=== PATIENT | female | born 1985 | race Caucasian/White ===

== ENCOUNTER 2016-05-27 04:10 | Emergency (ER) | payer BC ==
[~2016-05-27] VITALS: Ht 167.6 cm; Wt 70.3 kg
[2016-05-27] MEDS ORDERED: VITALIQ XX (04:19)
[2016-05-27] MEDS ORDERED: FISH1000 PO (04:20)
[2016-05-27] MEDS ORDERED: CLAR1TAB2 AD (04:21)
[2016-05-27] MEDS ORDERED: CLAR10CA3 PO (04:21)
[2016-05-27] MEDS ORDERED: NS 1,000 ML IV ONE ×2 (04:45→08:45)
[2016-05-27 05:00] LABS: BASO % 0.2 % (0.0-1.0); EOS # 0.1 K/mm3 (0.0-0.50); EOS % 0.9 % (0.0-3.0); LARGE UNSTAINED CELL # 0.1 K/mm3 (0.0-0.4); LARGE UNSTAINED CELL % 0.6 % (0.0-4.0); LYMPH % 9.7 % (24.0-44.0); MEAN CORPUSCULAR HEMOGLOBIN 33.1 pg (27.0-33.0); MEAN CORPUSCULAR HGB CONC 35.2 g/dl (32.0-36.5); MONO # 0.2 K/mm3 (0.0-0.8); MONO % 1.8 % (0.0-5.0); NEUTROPHILS # 8.7 K/mm3 (1.8-7.7); NEUTROPHILS % 86.8 % (36.0-66.0); PLATELET COUNT, AUTOMATED 238 k/mm3 (150-450); RED CELL DISTRIBUTION WIDTH 12.2 % (11.5-14.5); WHITE BLOOD COUNT 10.1 K/mm3 (4.0-10.0)
[2016-05-27 05:30] LABS: ALBUMIN 4.3 GM/DL (3.2-5.2); ALKALINE PHOSPHATASE 66 U/L (45-117); ALT/SGPT 32 U/L (12-78); ANION GAP 9 MEQ/L (8-16); AST/SGOT 24 U/L (15-37); BILIRUBIN,DIRECT < 0.1 MG/DL (0.0-0.2); BILIRUBIN,TOTAL 0.3 MG/DL (0.2-1.0); BLOOD UREA NITROGEN 10 MG/DL (7-18); CALCIUM LEVEL 8.5 MG/DL (8.5-10.1); CARBON DIOXIDE LEVEL 24 MEQ/L (21-32); CHLORIDE LEVEL 106 MEQ/L (98-107); CREATININE FOR GFR 0.86 MG/DL (0.55-1.02); GLOMERULAR FILTRATION RATE > 60.0 (>60); GLUCOSE, FASTING 128 MG/DL (70-105); POTASSIUM SERUM 3.3 MEQ/L (3.5-5.1); SODIUM LEVEL 139 MEQ/L (136-145); TOTAL PROTEIN 8.2 GM/DL (6.4-8.2)
[2016-05-27 06:10] LABS: VENOUS BASE EXCESS -2.5 (-2.0-2.0); VENOUS O2 SATURATION 86.6 % (60.0-80.0); VENOUS PARTIAL PRESSURE CO2 37.5 mmHg (38.0-50.0); VENOUS PARTIAL PRESSURE O2 51.2 mmHg (30.0-50.0); VENOUS STANDARD HCO3 22.2 MEQ/L; VENOUS TOTAL CO2 23.2 MEQ/L (24.0-28.0)
[2016-05-27 06:46] LABS: METHADONE URINE NEGATIVE (NEGATIVE)
[2016-05-27 10:00] VITALS: BP 130/75
[2016-05-27 11:28] LABS: CONTROL LINE HCG INT CTR LINE PRESENT
--- NOTE | 2016-05-28 09:15 | ECGEPIP ---
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
== END 2016-05-27 12:19 | disposition home or self-care (01) ==
LOC: M ED 05:09
DX: T14.91 Suicide attempt (principal); T39.1X2A Poisoning by 4-Aminophenol derivatives, intentional self-harm, initial encounter; Y92.89 Other specified places as the place of occurrence of the external cause
CPT/HCPCS: 36415; 80048; 80076; 80306; 82550; 82803; 84443; 84703; 85025; 93005; 93041; 96360; 96361; 99285; G0480

== ENCOUNTER → 2016-07-11 | Outpatient (REF) | payer BC ==
[~2016-07-11] MED LIST: CLAR10CA3 PO; CLAR1TAB2 AD; FISH1000 PO; VITALIQ XX
== END ==
LOC: M SFHCWAGY 08:55
PROVIDERS: ATTEND Nurse Practitioner Women's Health
DX: Z12.4 Encounter for screening for malignant neoplasm of cervix (principal)

== ENCOUNTER → 2016-09-24 | Outpatient (CLI) | payer BC ==
--- NOTE | 2016-09-25 05:24 | REP ---
Clinical: Pelvic pain and irregular menstrual cycles . Technique: Transabdominal pelvic ultrasound followed by transvaginal examination for better evaluation of the endometrium and adnexa. Findings: Bladder is unremarkable and measures 9.6 x 8.8 x 6.6 cm . Normal anteverted uterus measures 7.1 x 2.3 x 4.2 cm . The endometrial complex measures 5.9 mm thickness. No discrete uterine or endometrial abnormalities are appreciated. Bilateral ovaries are normal in appearance. Right ovary measures 3.4 x 2.3 x 2.0 cm. Left ovary measures 3.0 x 1.8 x 2.3 cm. No pelvic fluid or adnexal mass lesion . Impression: 1. Normal pelvic ultrasound Signed by Arsalan Miller MD 09/25/2016 05:15 A
== END ==
LOC: M WHC 15:01
PROVIDERS: ATTEND Nurse Practitioner Women's Health
DX: R10.30 Lower abdominal pain, unspecified (principal); N92.6 Irregular menstruation, unspecified

== ENCOUNTER → 2016-10-24 | Outpatient (CLI) | payer BC ==
[2016-10-24 13:02] LABS: PROLACTIN 10.8 NG/ML
[2016-10-24 13:13] LABS: CONTROL LINE HCG INT CTR LINE PRESENT
[2016-10-24 13:36] LABS: GLUCOSE, FASTING 86 MG/DL (70-105); T UPTAKE 35 % (30-39); THYROXINE (T4) 8.8 UG/DL (4.5-12.0)
[2016-10-28 08:06] LABS: INSULIN FREE 11 uU/mL (.)
== END ==
LOC: M SMT 08:51
PROVIDERS: ATTEND Advanced Practice Midwife
DX: N92.6 Irregular menstruation, unspecified (principal)

== ENCOUNTER → 2016-10-29 | Outpatient (CLI) | payer BC ==
[2016-10-29 20:16] LABS: FOLLICLE STIMULATING HORMONE 9.1 mIU/mL
== END ==
LOC: M WUC 17:33
PROVIDERS: ATTEND Advanced Practice Midwife
DX: N92.6 Irregular menstruation, unspecified (principal)

== ENCOUNTER → 2016-11-16 | Outpatient (CLI) | payer BC ==
[2016-11-16 12:49] LABS: PROGESTERONE 0.8 NG/ML
[2016-11-16 12:54] LABS: ESTRADIOL 89.2 PG/ML
== END ==
LOC: M WUC 08:14
PROVIDERS: ATTEND Advanced Practice Midwife
DX: N92.6 Irregular menstruation, unspecified (principal)

== ENCOUNTER → 2016-12-06 | Outpatient (CLI) | payer BC ==
[~2016-12-06] MED LIST changes: +ISOVUE-370 76% 100ML VIAL (Q9967) As Ordered ONE
--- NOTE | 2016-12-06 15:42 | REP ---
Hysterosalpingogram, 05/09 procedure fluoroscopic views: The procedures performed by the mental hygienist mani Donahue over the. The endometrial canal is normal in appearance. The right and left fallopian tubes are normal in appearance. There is bilateral intraperitoneal spill. Impression: Normal hysterosalpingogram. Fluoroscopic exposure time is 28 seconds. Fluoroscopic images are performed with last image hold technology. These images require no additional radiation. Signed by Guilherme Hanson MD 12/06/2016 03:34 P
== END ==
LOC: M RADPRO 12:58
PROVIDERS: ATTEND Obstetrics & Gynecology
DX: N97.8 Female infertility of other origin (principal); N92.6 Irregular menstruation, unspecified
CPT/HCPCS: 58340; 74740; Q9967

== ENCOUNTER → 2017-04-01 | Outpatient (CLI) | payer BC ==
[2017-04-01 19:20] LABS: HCG, SERUM QUANTITATIVE 114 MIU/ML
== END ==
LOC: M WUC 11:25
DX: N91.2 Amenorrhea, unspecified (principal)
CPT/HCPCS: 84702

== ENCOUNTER → 2017-04-03 | Outpatient (CLI) | payer BC ==
[2017-04-03 17:46] LABS: HCG, SERUM QUANTITATIVE 243 MIU/ML
== END ==
LOC: M WUC 10:53
DX: N91.2 Amenorrhea, unspecified (principal)
CPT/HCPCS: 84702

== ENCOUNTER → 2017-05-03 | Outpatient (REF) | payer BC | LOC: M LAB REF 13:20 | DX: R30.0 Dysuria (principal) | CPT/HCPCS: 87086 ==

== ENCOUNTER → 2017-05-17 | Outpatient (CLI) | payer BC ==
[2017-05-17 18:13] LABS: BASO % 0.2 % (0.0-1.0); EOS # 0.1 10^3/uL (0.0-0.50); EOS % 0.8 % (0.0-3.0); HEMATOCRIT 37.9 % (36.0-47.0); HEMOGLOBIN 13.6 g/dl (12.0-16.0); IMMATURE GRANULOCYTE % 0.4 % (0-3.0); LYMPH # 1.7 10^3/uL (1.5-6.5); LYMPH % 17.3 % (24.0-44.0); MEAN CORPUSCULAR HEMOGLOBIN 34.4 pg (27.0-33.0); MEAN CORPUSCULAR HGB CONC 35.9 g/dl (32.0-36.5); MEAN CORPUSCULAR VOLUME 95.9 fl (80.0-96.0); MONO # 0.4 10^3/uL (0.0-0.8); MONO % 3.7 % (0.0-5.0); NEUTROPHILS # 7.8 10^3/uL (1.8-7.7); NEUTROPHILS % 77.6 % (36.0-66.0); PLATELET COUNT, AUTOMATED 231 10^3/uL (150-450); RED BLOOD COUNT 3.95 10^6/uL (4.00-5.40); RED CELL DISTRIBUTION WIDTH 12.8 % (11.5-14.5); WHITE BLOOD COUNT 10.1 10^3/uL (4.0-10.0)
[2017-05-17 21:46] LABS: CHLAMYDIA DNA AMPLIFICATION NEGATIVE (NEGATIVE); GC DNA AMPLIFICATION NEGATIVE (NEGATIVE)
[2017-05-20 10:30] LABS: RUBELLA IgG QUALITATIVE IMMUNE (IMMUNE)
[2017-05-20 10:34] LABS: HBsAg Prenatal NEGATIVE (NEGATIVE)
[2017-05-20 10:59] LABS: HIV 1&2 SCREEN CENTAUR NEGATIVE (NEGATIVE)
[2017-05-20 10:59] LABS: HEPATITIS C VIRUS ABY INDEX < 0.0 INDEX (<0.8)
== END ==
LOC: M SMT 14:12
DX: Z34.81 Encounter for supervision of other normal pregnancy, first trimester (principal); Z3A.11 11 weeks gestation of pregnancy
CPT/HCPCS: 86762

== ENCOUNTER → 2017-06-26 | Outpatient (CLI) | payer BC | LOC: M SMT 12:54 | DX: Z34.80 Encounter for supervision of other normal pregnancy, unspecified trimester (principal) | CPT/HCPCS: 36415 ==

== ENCOUNTER → 2017-07-10 | Outpatient (CLI) | payer BC | LOC: M SMT 14:32 | DX: Z34.82 Encounter for supervision of other normal pregnancy, second trimester (principal); Z3A.18 18 weeks gestation of pregnancy | CPT/HCPCS: 76811 ==

== ENCOUNTER → 2017-08-28 | Outpatient (CLI) | payer BC | LOC: M RAD 09:27 | DX: Z34.82 Encounter for supervision of other normal pregnancy, second trimester (principal) | CPT/HCPCS: 76816 ==

== ENCOUNTER → 2017-09-02 | Outpatient (CLI) | payer BC ==
[2017-09-02 13:28] LABS: HEMATOCRIT 37.8 % (36.0-47.0); HEMOGLOBIN 12.9 g/dl (12.0-15.5); MEAN CORPUSCULAR HEMOGLOBIN 34.8 pg (27.0-33.0); MEAN CORPUSCULAR HGB CONC 34.1 g/dl (32.0-36.5); MEAN CORPUSCULAR VOLUME 101.9 fl (80.0-96.0); PLATELET COUNT, AUTOMATED 218 10^3/uL (150-450); RED BLOOD COUNT 3.71 10^6/uL (4.00-5.40); RED CELL DISTRIBUTION WIDTH 13.5 % (11.5-14.5); WHITE BLOOD COUNT 11.9 10^3/uL (4.0-10.0)
[2017-09-02 13:55] LABS: GLUCOSE CHALLENGE TEST 1 HOUR 132 MG/DL (LESS THAN 140)
[2017-09-03 09:19] LABS: TYPE AND SCREEN 1 1
== END ==
LOC: M SMT 08:22
DX: Z34.82 Encounter for supervision of other normal pregnancy, second trimester (principal); Z36.89 Encounter for other specified antenatal screening
CPT/HCPCS: 82950

== ENCOUNTER → 2017-09-13 | Outpatient (CLI) | payer BC ==
[2017-09-13 08:45] LABS: GLUCOSE, FASTING 96 MG/DL (LESS THAN 95)
[2017-09-13 09:31] LABS: 1 HR GLUCOSE 151 MG/DL (LESS THAN 180)
[2017-09-13 10:31] LABS: 2 HR GLUCOSE 119 MG/DL (LESS THAN 155)
[2017-09-13 11:33] LABS: 3 HR GLUCOSE 74 MG/DL (LESS THAN 140)
== END ==
LOC: M LAB 07:22
DX: Z34.83 Encounter for supervision of other normal pregnancy, third trimester (principal); Z3A.00 Weeks of gestation of pregnancy not specified
CPT/HCPCS: 82951

== ENCOUNTER 2017-11-20 09:25 | Inpatient (IN) | payer BC ==
[2017-11-20 10:09] LABS: HEMATOCRIT 36.7 % (36.0-47.0); HEMOGLOBIN 12.3 g/dl (12.0-15.5); MEAN CORPUSCULAR HEMOGLOBIN 32.6 pg (27.0-33.0); MEAN CORPUSCULAR HGB CONC 33.5 g/dl (32.0-36.5); MEAN CORPUSCULAR VOLUME 97.3 fl (80.0-96.0); PLATELET COUNT, AUTOMATED 208 10^3/uL (150-450); RED BLOOD COUNT 3.77 10^6/uL (4.00-5.40); RED CELL DISTRIBUTION WIDTH 13.5 % (11.5-14.5)
[2017-11-20 10:34] LABS: ALT/SGPT 16 U/L (12-78); AST/SGOT 17 U/L (7-37); BILIRUBIN,TOTAL 0.2 MG/DL (0.2-1.0); CREATININE FOR GFR 0.53 MG/DL (0.55-1.30); GLOMERULAR FILTRATION RATE > 60.0 (>60); LDH LACTATE DEHYDROGENASE 226 U/L (84-246); URIC ACID 5.6 MG/DL (2.6-6.0)
[2017-11-20 12:38] LABS: CREATININE,RANDOM URINE 25.5 MG/DL
[2017-11-20 12:38] LABS: TOTAL PROTEIN,RANDOM URINE 29.1 MG/DL (0.0-12.0)
[2017-11-20] MEDS: miSOPROStol 50 MCG 1/2 TAB (S0191) PO ×3 (12:41→20:44)
[2017-11-21] MEDS: LABETALOL HCL 100 MG/20 ML VIAL IV (00:21)
[2017-11-21] MEDS: miSOPROStol 50 MCG 1/2 TAB (S0191) PO ×2 (04:43)
[2017-11-21] MEDS ORDERED: OXYTOCIN 30 UNITS IN 0.9% NaCl 500ML IV BAG (J2590) As Ordered (09:33)
[2017-11-21] MEDS: LR 1,000 ML IV ×3 (10:15→20:10)
[2017-11-21] MEDS: OXYTOCIN DRIP 30 UNITS in APPROPRIATE DILUENT 1 EA IV (10:15)
[2017-11-21] MEDS ORDERED: FENTANYL 2MCG/ML ROPIVACAINE 0.2% IN 0.9% NACL 200ML IVBAG As Ordered (18:10)
[2017-11-21 18:15] LABS: HEMATOCRIT 37.3 % (36.0-47.0); HEMOGLOBIN 12.3 g/dl (12.0-15.5); MEAN CORPUSCULAR HEMOGLOBIN 32.5 pg (27.0-33.0); MEAN CORPUSCULAR VOLUME 98.4 fl (80.0-96.0); PLATELET COUNT, AUTOMATED 205 10^3/uL (150-450); RED BLOOD COUNT 3.79 10^6/uL (4.00-5.40); RED CELL DISTRIBUTION WIDTH 13.7 % (11.5-14.5); WHITE BLOOD COUNT 13.7 10^3/uL (4.0-10.0)
[2017-11-21] MEDS ORDERED: NALOXONE INJ 0.4 MG/1 ML VIAL (J2310) IV (20:00)
[2017-11-21] MEDS ORDERED: EPIDURAL COMMENT XX (20:00)
[2017-11-21] MEDS ORDERED: ONDANSETRON 4MG/2ML VIAL (J2405) IV (20:00)
[2017-11-21] MEDS ORDERED: diphenhydrAMINE INJ 50MG/ML VIAL (J1200) IV (20:00)
[2017-11-21] MEDS ORDERED: EPIDURAL/PCA KEYS XX (20:00)
[2017-11-21] MEDS ORDERED: FENTANYL/ROPIVACAINE/NACL BAG 200 ML EPIDURAL (20:00)
[2017-11-21] MEDS ORDERED: REFRIGERATOR IV KEYS XX (20:00)
[2017-11-21] MEDS ORDERED: LACTATED RINGER'S 1000 ML IV (20:00)
[2017-11-21] MEDS: ePHEDrine SULFATE 25 MG/5 ML(5MG/ML) SYRINGE IV (20:08)
[2017-11-22] MEDS: ePHEDrine SULFATE 25 MG/5 ML(5MG/ML) SYRINGE IV (01:10)
[2017-11-22] MEDS: LR 1,000 ML IV ×4 (01:11→20:08)
[2017-11-22] MEDS: BICITRA 30ML SOLN UDC PO (06:13)
[2017-11-22] MEDS ORDERED: OXYTOCIN INJ 10 UNITS/ML VIAL (J2590) As Ordered ×2 (06:39)
[2017-11-22] MEDS ORDERED: ONDANSETRON 4MG/2ML VIAL (J2405) As Ordered (06:39)
[2017-11-22] MEDS ORDERED: LIDOCAINE 2% W/EPIN INJ 20ML **PRES FREE As Ordered (06:39)
[2017-11-22] MEDS ORDERED: KETOROLAC 60 MG/2 ML VIAL (J1885) As Ordered (06:40)
[2017-11-22] MEDS ORDERED: SODIUM BICARBONATE 8.4% INJ 50 ML SYRINGE As Ordered (06:41)
[2017-11-22] MEDS ORDERED: PHENYLephrine HCL 500 MCG/5 ML (100MCG/ML) SYRINGE (J2370) As Ordered (06:42)
[2017-11-22] MEDS ORDERED: dexameTHASONE 4 MG/ML 1ML VIAL (J1100) As Ordered (06:47)
[2017-11-22] MEDS ORDERED: MORPHINE PRES-FREE INJ 10 MG/10 ML VIAL (J2274) As Ordered (06:50)
[2017-11-22] MEDS ORDERED: ONDANSETRON 4MG/2ML VIAL (J2405) IV ×3 (07:00→08:15)
[2017-11-22] MEDS ORDERED: NALOXONE INJ 0.4 MG/1 ML VIAL (J2310) IV ×2 (07:00)
[2017-11-22] MEDS ORDERED: NALBUPHINE HCL 10 MG/ML AMP (J2300) IV ×2 (07:00→08:15)
[2017-11-22] MEDS ORDERED: METOCLOPRAMIDE INJ 10MG/2ML VIAL (J2765) IV (07:00)
[2017-11-22] MEDS: OXYTOCIN DRIP 30 UNITS in APPROPRIATE DILUENT 1 EA IV (07:21)
[2017-11-22 07:24] LABS: CORD GAS ABE V -1.3; CORD GAS HCO3 V 26.5 MEQ/L; CORD GAS O2 SAT V 23.9 %; CORD GAS PCO2 V 56.7 mmHg; CORD GAS PH V 7.287 UNITS; CORD GAS SBC V 21.5 MEQ/L; CORD GAS TCO2 V 28.2 MEQ/L
[2017-11-22 07:25] LABS: CORD GAS ABE A -1.7; CORD GAS HCO3 A 27.5 MEQ/L; CORD GAS O2 SAT A 37.2 %; CORD GAS PCO2 A 66.7 mmHg; CORD GAS PH A 7.233 UNITS; CORD GAS PO2 A 20.4 mmHg; CORD GAS SBC A 21.6 MEQ/L; CORD GAS TCO2 A 29.5 MEQ/L
[2017-11-22] MEDS ORDERED: MOM 30ML SUSPENSION UDC PO (07:30)
[2017-11-22] MEDS ORDERED: MEASLES,MUMPS,RUBELLA VACCINE INJ (MMR-II) (90707) SC (07:30)
[2017-11-22] MEDS ORDERED: fentaNYL 100 MCG/2 ML INJECTION (J3010) IV (08:15)
[2017-11-22] MEDS: PRENATAL VITAMINS CHEWABLE TABLET PO (08:59)
[2017-11-22] MEDS: KETOROLAC 30 MG/ML VIAL (J1885) IV ×2 (13:05→18:49)
[2017-11-22] MEDS ORDERED: INFLUENZA QUADRIVALENT PF VACCINE 0.5ML SYRINGE (90686) IM (15:00)
[2017-11-22] MEDS: DOCUSATE SODIUM 100 MG CAP PO (20:08)
[2017-11-22] MEDS: PERCOCET 5MG/325MG TAB PO (20:08)
[2017-11-23] MEDS: KETOROLAC 30 MG/ML VIAL (J1885) IV (01:55)
[2017-11-23] MEDS: LR 1,000 ML IV ×2 (02:15→10:15)
[2017-11-23] MEDS: PERCOCET 5MG/325MG TAB PO ×4 (05:18→19:55)
[2017-11-23 07:30] LABS: HEMATOCRIT 26.3 % (36.0-47.0); MEAN CORPUSCULAR HEMOGLOBIN 32.7 pg (27.0-33.0); MEAN CORPUSCULAR HGB CONC 33.1 g/dl (32.0-36.5); MEAN CORPUSCULAR VOLUME 98.9 fl (80.0-96.0); PLATELET COUNT, AUTOMATED 162 10^3/uL (150-450); RED BLOOD COUNT 2.66 10^6/uL (4.00-5.40); RED CELL DISTRIBUTION WIDTH 13.7 % (11.5-14.5); WHITE BLOOD COUNT 11.5 10^3/uL (4.0-10.0)
[2017-11-23 07:40] LABS: HEMOGLOBIN 8.7 g/dl (12.0-15.5)
[2017-11-23] MEDS: IBUPROFEN 800 MG TAB PO ×2 (08:16→16:41)
[2017-11-23] MEDS: PRENATAL VITAMINS CHEWABLE TABLET PO (08:16)
[2017-11-23 11:05] LABS: FETAL SCREEN PROF. 1 1
[2017-11-23] MEDS: RHOGAM 300 MCG (1500 IU) INJ (J2790) IM (11:20)
[2017-11-23] MEDS: DOCUSATE SODIUM 100 MG CAP PO (19:53)
[2017-11-24] MEDS: IBUPROFEN 800 MG TAB PO ×3 (00:26→16:39)
[2017-11-24] MEDS: PERCOCET 5MG/325MG TAB PO ×5 (00:27→20:04)
[2017-11-24] MEDS: PRENATAL VITAMINS CHEWABLE TABLET PO (08:59)
[2017-11-24] MEDS ORDERED: INFLUENZA QUADRIVALENT PF VACCINE 0.5ML SYRINGE (90686) IM (09:00)
[2017-11-25] MEDS: IBUPROFEN 800 MG TAB PO ×2 (01:30→08:46)
[2017-11-25] MEDS: PERCOCET 5MG/325MG TAB PO ×2 (05:53→10:55)
[2017-11-25] MEDS: PRENATAL VITAMINS CHEWABLE TABLET PO (08:46)
[2017-11-25] MEDS: LABETALOL 200 MG TAB PO (08:49)
[2017-11-25] MEDS: INFLUENZA QUADRIVALENT PF VACCINE 0.5ML SYRINGE (90686) IM (10:46)
== END 2017-11-25 14:50 | disposition home or self-care (01) | DRG 540 ==
LOC: M LDO 09:25 → M OBS 11-22 08:57 → M LDI 11:24
PROC: 10D00Z1 Extraction of Products of Conception, Low, Open Approach (ICD-10-PCS; principal; 2017-11-22 06:28)
DX: O14.94 Unspecified pre-eclampsia, complicating childbirth (principal); Z37.0 Single live birth; Z3A.37 37 weeks gestation of pregnancy

== ENCOUNTER → 2018-01-29 | Outpatient (REF) | payer BC | LOC: M LAB REF 13:01 | DX: R30.0 Dysuria (principal); R31.9 Hematuria, unspecified | CPT/HCPCS: 87186 ==

== ENCOUNTER → 2018-05-29 | Outpatient (REF) | payer BC ==
[~2018-05-29] MED LIST changes: +COLA100C5 PO; +IBUP-1114 PO; +IBUP1TAB7 PO; -ISOVUE-370 76% 100ML VIAL (Q9967) As Ordered ONE; +LABE20TAB PO; +PERCOCET PO; +PRENTAB9 PO
[2018-05-31 16:40] LABS: HPV HYBRID CAPTURE II Negative (Negative)
== END ==
LOC: M LAB REF 18:35
PROVIDERS: ATTEND Obstetrics & Gynecology
DX: Z12.4 Encounter for screening for malignant neoplasm of cervix (principal)
CPT/HCPCS: 87624; G0123

== ENCOUNTER → 2018-12-01 | Outpatient (CLI) | payer BC ==
[2018-12-01 19:19] LABS: BASO % 0.3 % (0.0-1.0); EOS # 0.1 10^3/uL (0.0-0.5); EOS % 0.7 % (0.0-3.0); HEMATOCRIT 40.8 % (36.0-47.0); HEMOGLOBIN 14.3 g/dl (12.0-15.5); LYMPH # 2.5 10^3/uL (1.5-5.0); LYMPH % 25.1 % (24.0-44.0); MEAN CORPUSCULAR HEMOGLOBIN 34.4 pg (27.0-33.0); MEAN CORPUSCULAR VOLUME 98.1 fl (80.0-96.0); MONO # 0.5 10^3/uL (0.0-0.8); MONO % 4.7 % (0.0-5.0); NEUTROPHILS # 6.8 10^3/uL (1.5-8.5); NEUTROPHILS % 68.9 % (36.0-66.0); PLATELET COUNT, AUTOMATED 237 10^3/uL (150-450); RED BLOOD COUNT 4.16 10^6/uL (4.00-5.40); WHITE BLOOD COUNT 9.9 10^3/uL (4.0-10.0)
[2018-12-01 19:29] LABS: ALT/SGPT 187 U/L (12-78); BILIRUBIN,TOTAL 0.2 MG/DL (0.2-1.0); GLOMERULAR FILTRATION RATE > 60.0 (>60); LDH LACTATE DEHYDROGENASE 186 U/L (84-246); URIC ACID 3.1 MG/DL (2.6-6.0)
[2018-12-01 19:45] LABS: RUBELLA IgG QUALITATIVE IMMUNE (IMMUNE)
[2018-12-01 20:13] LABS: CREATININE,RANDOM URINE 30.5 MG/DL; TOTAL PROTEIN,RANDOM URINE 5.1 MG/DL (0.0-12.0)
[2018-12-01 20:14] LABS: HIV 1&2 SCREEN CENTAUR NEGATIVE (NEGATIVE)
[2018-12-01 21:30] LABS: CHLAMYDIA DNA AMPLIFICATION NEGATIVE (NEGATIVE); GC DNA AMPLIFICATION NEGATIVE (NEGATIVE)
[2018-12-03 10:07] LABS: HEPATITIS C VIRUS ABY INDEX 0.1 INDEX (<0.8)
== END ==
LOC: M LABDRWAD 15:15
PROVIDERS: ATTEND Advanced Practice Midwife
DX: Z34.81 Encounter for supervision of other normal pregnancy, first trimester (principal); Z3A.08 8 weeks gestation of pregnancy

== ENCOUNTER → 2018-12-29 | Outpatient (REF) | payer BC ==
[2018-12-29 18:43] LABS: ALT/SGPT 28 U/L (12-78); BILIRUBIN,TOTAL 0.3 MG/DL (0.2-1.0); CREATININE FOR GFR 0.52 MG/DL (0.55-1.30); GLOMERULAR FILTRATION RATE > 60.0 (>60); LDH LACTATE DEHYDROGENASE 172 U/L (84-246); URIC ACID 3.2 MG/DL (2.6-6.0)
[2018-12-29 19:30] LABS: CREATININE,RANDOM URINE 58.1 MG/DL; TOTAL PROTEIN,RANDOM URINE 8.4 MG/DL (0.0-12.0)
== END ==
LOC: M LABDRWAD 18:23
PROVIDERS: ATTEND Advanced Practice Midwife
DX: O34.211 Maternal care for low transverse scar from previous cesarean delivery (principal); Z3A.00 Weeks of gestation of pregnancy not specified

== ENCOUNTER → 2019-01-20 | Outpatient (CLI) | payer BC | LOC: M SMT 15:17 | PROVIDERS: ATTEND Advanced Practice Midwife | DX: Z34.82 Encounter for supervision of other normal pregnancy, second trimester (principal); Z3A.00 Weeks of gestation of pregnancy not specified ==

== ENCOUNTER → 2019-03-03 | Outpatient (CLI) | payer BC ==
[2019-03-03 17:58] LABS: HEMATOCRIT 35.5 % (36.0-47.0); HEMOGLOBIN 12.2 g/dl (12.0-15.5); MEAN CORPUSCULAR HEMOGLOBIN 35.6 pg (27.0-33.0); MEAN CORPUSCULAR HGB CONC 34.4 g/dl (32.0-36.5); MEAN CORPUSCULAR VOLUME 103.5 fl (80.0-96.0); PLATELET COUNT, AUTOMATED 215 10^3/uL (150-450); RED BLOOD COUNT 3.43 10^6/uL (4.00-5.40); WHITE BLOOD COUNT 10.9 10^3/uL (4.0-10.0)
[2019-03-03 18:20] LABS: TOTAL PROTEIN,RANDOM URINE 15.3 MG/DL (0.0-12.0)
[2019-03-03 18:22] LABS: ALT/SGPT 16 U/L (12-78); BILIRUBIN,TOTAL 0.2 MG/DL (0.2-1.0); CREATININE FOR GFR 0.55 MG/DL (0.55-1.30); GLOMERULAR FILTRATION RATE > 60.0 (>60); LDH LACTATE DEHYDROGENASE 148 U/L (84-246); URIC ACID 3.9 MG/DL (2.6-6.0)
== END ==
LOC: M WUC 14:19
PROVIDERS: ATTEND Advanced Practice Midwife
DX: O16.2 Unspecified maternal hypertension, second trimester (principal); Z3A.00 Weeks of gestation of pregnancy not specified

== ENCOUNTER → 2019-03-21 | Outpatient (CLI) | payer BC ==
[2019-03-21 17:41] LABS: HEMATOCRIT 37.2 % (36.0-47.0); HEMOGLOBIN 12.7 g/dl (12.0-15.5); MEAN CORPUSCULAR HEMOGLOBIN 35.2 pg (27.0-33.0); MEAN CORPUSCULAR HGB CONC 34.1 g/dl (32.0-36.5); PLATELET COUNT, AUTOMATED 217 10^3/uL (150-450); RED BLOOD COUNT 3.61 10^6/uL (4.00-5.40); WHITE BLOOD COUNT 9.5 10^3/uL (4.0-10.0)
== END ==
LOC: M LABDRWAD 08:42
PROVIDERS: ATTEND Specialist
DX: Z34.92 Encounter for supervision of normal pregnancy, unspecified, second trimester (principal); Z3A.00 Weeks of gestation of pregnancy not specified

== ENCOUNTER → 2019-04-15 | Outpatient (CLI) | payer BC | LOC: M PLALAB 11:11 | PROVIDERS: ATTEND Advanced Practice Midwife | DX: O99.810 Abnormal glucose complicating pregnancy (principal); Z3A.00 Weeks of gestation of pregnancy not specified ==

== ENCOUNTER → 2019-04-22 | Outpatient (CLI) | payer BC | LOC: M LAB 08:22 | PROVIDERS: ATTEND Advanced Practice Midwife | DX: O99.810 Abnormal glucose complicating pregnancy (principal); Z3A.00 Weeks of gestation of pregnancy not specified ==

== ENCOUNTER → 2019-05-27 | Outpatient (CLI) | payer BC ==
--- NOTE | 2019-05-27 09:22 | REP ---
Clinical: Growth evaluation. Comparison: 02/20/2019 . Findings: Examination demonstrates a single live intrauterine in transverse (head to maternal right) presentation. motion is identified by technologist. Placenta is noted fundal and grade I I without evidence for placenta previa or abruption. Amniotic fluid volume is normal. Cervix measures 4.6 cm in length and appears closed. No evidence for nuchal cord. Gestational age by LMP 34 weeks 5 days with BRINA 07/03/2019 . Gestational age by current measurements 35 weeks 4 days with BRINA 06/27/2019 . FHR equals 135 beats per minute. Amniotic fluid index: 23.3 cm (8.0 - 24.9) Estimated weight by current biometrical measurements 2707 grams ( 63rd percentile). Impression: Single live advanced gestation in transverse lie demonstrating appropriate interval growth.
== END ==
LOC: M WHC 08:20
PROVIDERS: ATTEND Advanced Practice Midwife
DX: O10.913 Unspecified pre-existing hypertension complicating pregnancy, third trimester (principal)

== ENCOUNTER → 2019-06-05 | Outpatient (REF) | payer BC ==
[~2019-06-05] MED LIST changes: +ASPI81TA85 PO; +LABE10TAB PO
== END ==
LOC: M SFHCWAGY 13:05
PROVIDERS: ATTEND Obstetrics & Gynecology
DX: Z36.85 Encounter for antenatal screening for Streptococcus B (principal); O10.913 Unspecified pre-existing hypertension complicating pregnancy, third trimester; Z3A.00 Weeks of gestation of pregnancy not specified

== ENCOUNTER 2019-06-23 06:24 | Inpatient (IN) | payer BC ==
[~2019-06-23] VITALS: Ht 167.6 cm; Wt 91.8 kg
[2019-06-23] VITALS (8 sets, daily range): BP systolic 92–124; BP diastolic 55–72
[2019-06-23] MEDS ORDERED: LR 1,000 ML IV ONE (07:30)
[2019-06-23] MEDS ORDERED: ceFAZolin SOD 2 GM in IV 1 EA IV ONE (07:30)
[2019-06-23] MEDS ORDERED: BICITRA 30ML SOLN UDC PO ONE (07:30)
[2019-06-23] MEDS ORDERED: LR 1,000 ML IV SCH ×2 (07:30→10:28)
[2019-06-23 07:48] LABS: HEMATOCRIT 36.9 % (36.0-47.0); HEMOGLOBIN 12.7 g/dl (12.0-15.5); MEAN CORPUSCULAR HGB CONC 34.4 g/dl (32.0-36.5); MEAN CORPUSCULAR VOLUME 98.7 fl (80.0-96.0); PLATELET COUNT, AUTOMATED 191 10^3/uL (150-450); RED BLOOD COUNT 3.74 10^6/uL (4.00-5.40); WHITE BLOOD COUNT 8.9 10^3/uL (4.0-10.0)
[2019-06-23] MEDS ORDERED: OXYTOCIN INJ 10 UNITS/ML VIAL (J2590) As Ordered ONE ×2 (08:24→08:25)
[2019-06-23] MEDS ORDERED: MORPHINE PRES-FREE INJ 10 MG/10 ML VIAL (J2274) As Ordered ONE (08:24)
[2019-06-23] MEDS ORDERED: NALBUPHINE HCL 10 MG/ML AMP (J2300) IV PRN (09:15)
[2019-06-23] MEDS ORDERED: ONDANSETRON 4MG/2ML VIAL IV PRN ×2 (09:15→10:30)
[2019-06-23] MEDS ORDERED: NALOXONE INJ 0.4MG/1ML VIAL (J2310 PER 1MG) IV PRN ×2 (09:15)
[2019-06-23] MEDS ORDERED: diphenhydrAMINE 50MG/ML VIAL (J1200) IV PRN (09:15)
[2019-06-23] MEDS ORDERED: METOCLOPRAMIDE INJ 10MG/2ML VIAL (J2765 PER 1) IV PRN (09:15)
[2019-06-23] MEDS ORDERED: BUPIVACAINE/DEXTROSE 0.75% 2 ML AMP As Ordered ONE (09:39)
[2019-06-23] MEDS ORDERED: dexameTHASONE 4 MG/ML 1ML VIAL (J1100 PER 1MG) As Ordered ONE (09:39)
[2019-06-23] MEDS ORDERED: KETOROLAC 60 MG/2 ML VIAL As Ordered ONE (09:39)
[2019-06-23] MEDS ORDERED: ONDANSETRON 4MG/2ML VIAL As Ordered ONE (09:39)
[2019-06-23] MEDS ORDERED: PHENYLephrine HCL 500 MCG/5 ML (100MCG/ML) SYRINGE (J2370) As Ordered ONE (10:14)
[2019-06-23] MEDS ORDERED: ePHEDrine SULFATE 25 MG/5 ML(5MG/ML) SYRINGE As Ordered ONE (10:14)
[2019-06-23] MEDS ORDERED: OXYTOCIN DRIP 30 UNITS in IV 1 EA IV SCH (10:28)
[2019-06-23] MEDS ORDERED: RHOGAM 300 MCG (1500 IU) INJ (J2790) IM SCH (10:30)
[2019-06-23] MEDS ORDERED: MOM 30ML SUSPENSION UDC PO PRN (10:30)
[2019-06-23] MEDS ORDERED: MEASLES,MUMPS,RUBELLA VACCINE INJ (MMR-II) (90707) SC SCH (10:30)
[2019-06-23] MEDS ORDERED: OXYTOCIN 30 UNITS IN 0.9% NaCl 500ML IV BAG (J2590) As Ordered ONE (10:38)
[2019-06-23] MEDS: KETOROLAC 30 MG/ML 1ML VIAL IV SCH ×2 (15:39→22:11)
--- NOTE | 2019-06-23 16:13 | ROOPDOC ---
[facility] Report Of Operation Report of Operation DATE OF PROCEDURE: 06/23/19 SURGEON: Jocelynn Mckeon M.D. HOME HEALTH CARE CASE MANAGER: Franklin Dhaliwal DO ANESTHESIA: Spinal ESTIMATED BLOOD LOSS: 500 ml URINE OUTPUT: 200 mL INTRAVENOUS FLUIDS: 1700 mL PREOPERATIVE ANTIBIOTICS:. 2 g of Ancef PERIOPERATIVE DIAGNOSIS: 1. Chronic hypertension 2. History of prior section 3. Intrauterine at 38+ weeks 4. Satisfied parity with undesired fertility POSTOPERATIVE DIAGNOSIS: 1. Chronic hypertension 2. History of prior section 3. Intrauterine at 38+ weeks 4. Satisfied parity with undesired fertility OPERATIVE FINDINGS: Liveborn male infant, Apgars 9 and 9. Weight was 4070 g or 9 lbs. 0 oz. SPECIMENS:. Bilateral segments of fallopian tubes DESCRIPTION OF PROCEDURE: After informed consent was obtained and written consent was reviewed. The patient was brought to the operating room where spinal anesthesia was placed. She was then placed in the supine position with a left lateral tilt. Batista catheter was placed and to gravity. Patient was then prepped and draped in the normal sterile fashion. A timeout operating room was performed identifying the patient, procedure be performed as well as drug allergies. Anesthesia was tested and deemed to be adequate. Pfannenstiel skin incision was made and this was carried down to the underlying rectus fascia. The fascia was then scored and this incision was extended bilaterally. The fascia was then dissected off the underlying rectus muscle superiorly and inferiorly. The rectus muscles were then in the midline. The peritoneum is then entered. Vesicouterine peritoneum was then tented and excised and a bladder flap was created. Mobius retractor was then placed. Next, a curvilinear incision was then made in the lower uterine segment. Amniotomy was performed, productive, clear fluid. The head was brought to the level of the incision atraumatically and delivered along the shoulders and corpus. The cord was clamped 2. The was brought over to the warmer with a good cry. Placenta was drained and delivered grossly intact. The uterus was cleared of all clots and debris and the uterine incision was then closed in 2 layers using 0 Vicryl, first in a running locking fashion followed by second layer for imbrication. The abdomen suctioned. Surgical sites reinspected and noted be hemostatic. Attention was then turned to a bilateral [place] tubal ligation. A window was created in the right mesosalpinx. This area was doubly ligated with 3-0 chromic and was excised with good hemostasis noted. In a similar fashion, the left fallopian tube was placed on traction. A window was created in the mesosalpinx. This area was doubly ligated with 3-0 chromic and was excised, and hemostasis was noted. The retractor was then removed. The anterior peritoneum was then reapproximated with 3-0 Vicryl. The rectus muscles were reapproximated 3-0 Vicryl. The fascia was then closed using 0Vicryl in a running nonlocking fashion. The subcutaneous tissues was then irrigated and suctioned. Subcutaneous tissue was reapproximated using 3-0 Vicryl. Several subdermal stitch is placed using 3-0 Vicryl and the skin was closed with 4-0 Monocryl and subarticular fashion. This incision was then cleaned and dried and was dressed. The patient was then taken to recovery in stable condition. All counts were correct. My certified ophthalmic surgical assistant Dr. Dhaliwal played in an essential roll during the operation. They assisted with tissue identification retraction, delivery of the , as well as wound closure. JOCELYNN MCKEON MD. Jun 23, 2019 16:13
[2019-06-23] MEDS: LABETALOL 100 MG TAB PO SCH (20:19)
[2019-06-23] MEDS: DOCUSATE SODIUM 100 MG CAP PO SCH (20:20)
[2019-06-24] MEDS: KETOROLAC 30 MG/ML 1ML VIAL IV SCH (04:01)
[2019-06-24 06:00] VITALS: BP 100/62
[2019-06-24 07:16] LABS: HEMATOCRIT 32.5 % (36.0-47.0); HEMOGLOBIN 11.3 g/dl (12.0-15.5); MEAN CORPUSCULAR HEMOGLOBIN 34.7 pg (27.0-33.0); MEAN CORPUSCULAR HGB CONC 34.8 g/dl (32.0-36.5); MEAN CORPUSCULAR VOLUME 99.7 fl (80.0-96.0); PLATELET COUNT, AUTOMATED 174 10^3/uL (150-450); RED BLOOD COUNT 3.26 10^6/uL (4.00-5.40); WHITE BLOOD COUNT 11.4 10^3/uL (4.0-10.0)
[2019-06-24] MEDS: DOCUSATE SODIUM 100 MG CAP PO SCH ×2 (08:41→21:18)
[2019-06-24] MEDS: PRENATAL VITAMINS CHEWABLE TABLET PO SCH (08:41)
[2019-06-24] MEDS: LABETALOL 100 MG TAB PO SCH ×2 (08:42→21:19)
[2019-06-24] MEDS: PERCOCET 5MG/325MG TAB PO PRN ×3 (08:43→18:09)
[2019-06-24 09:51] VITALS: BP 110/54
[2019-06-24] MEDS: IBUPROFEN 800 MG TAB PO SCH ×2 (12:32→19:51)
[2019-06-24 14:01] VITALS: BP 135/69
[2019-06-24 18:01] VITALS: BP 139/69
[2019-06-24 21:15] VITALS: BP 128/77
[2019-06-25] MEDS: PERCOCET 5MG/325MG TAB PO PRN ×2 (01:22→07:45)
[2019-06-25 01:56] VITALS: BP 114/63
[2019-06-25] MEDS: IBUPROFEN 800 MG TAB PO SCH ×2 (04:16→11:07)
[2019-06-25 06:00] VITALS: BP 118/59
[2019-06-25] MEDS: PRENATAL VITAMINS CHEWABLE TABLET PO SCH (07:45)
[2019-06-25] MEDS: DOCUSATE SODIUM 100 MG CAP PO SCH (07:45)
[2019-06-25 07:46] VITALS: BP 114/58
[2019-06-25] MEDS: LABETALOL 100 MG TAB PO SCH (07:46)
[2019-06-25] MEDS ORDERED: OXYC1TAB23 PO (10:03)
[2019-06-25] MEDS ORDERED: IBUP80TA PO (10:04)
--- NOTE | 2019-06-25 10:36 | DSES ---
DATE OF ADMISSION: 06/23/2019 DATE OF DISCHARGE: 06/25/2019 HISTORY: A 34-year-old, female, at 38 weeks' gestation who presents for repeat section and tubal ligation. The indication for delivery less than 39 weeks is chronic hypertension. She has had one prior section. HOSPITAL COURSE: On 06/03/2019, the patient was admitted for a repeat (C) section. She underwent a repeat C section and tubal ligation for a 9-pound 0-ounce male , scores 9 and 9. There were no complications. Her postoperative course was unremarkable. She had adequate return of bladder and bowel function. Her postoperative hemoglobin was 11.3 g/dL. She was deemed stable for discharge on postoperative day #2. ADMISSION DIAGNOSES: term, chronic hypertension, prior C section. DISCHARGE DIAGNOSIS: Delivered. PROCEDURE: Repeat low transverse section and bilateral tubal ligation. DISPOSITION: The patient will followup with Dr. Mckeon in 2 weeks. Instructions were reviewed. FARHANA
== END 2019-06-25 11:52 | disposition home or self-care (01) | DRG 540 ==
LOC: M LDI 06:24 → M OBS 12:05
PROVIDERS: ADMIT Obstetrics & Gynecology; ATTEND Obstetrics & Gynecology
PROC: 0UB70ZZ Excision of Bilateral Fallopian Tubes, Open Approach (ICD-10-PCS; 2019-06-23)
PROC: 10D00Z1 Extraction of Products of Conception, Low, Open Approach (ICD-10-PCS; principal; 2019-06-23 07:30)
DX: O34.211 Maternal care for low transverse scar from previous cesarean delivery (principal); O10.92 Unspecified pre-existing hypertension complicating childbirth; Z37.0 Single live birth; Z3A.38 38 weeks gestation of pregnancy; Z30.2 Encounter for sterilization

== ENCOUNTER → 2019-08-17 | Outpatient (REF) | payer BC ==
[~2019-08-17] MED LIST changes: -ASPI81TA85 PO; +ASPI81TA86 PO; +IBUP80TA PO; +LABE100T4 PO; -LABE10TAB PO; +OXYC1TAB23 PO
[2019-08-17 18:52] LABS: APPEARANCE, URINE HAZY (CLEAR); BACTERIA, URINE AUTO 2+ (NEGATIVE); BILIRUBIN, URINE AUTO NEGATIVE (NEGATIVE); BLOOD, URINE BLOOD NEGATIVE (NEGATIVE); COLOR, URINE YELLOW (YELLOW); GLUCOSE, URINE (UA) AUTO NEGATIVE (NEGATIVE); KETONE, URINE AUTO NEGATIVE (NEGATIVE); LEUKOCYTE ESTERASE, URINE AUTO 2+ (NEGATIVE); NITRITE, URINE AUTO POSITIVE (NEGATIVE); PROTEIN, URINE AUTO NEGATIVE (NEGATIVE); RBC, URINE AUTO 4 /HPF (0-3); SPECIFIC GRAVITY URINE AUTO 1.021 (1.002-1.035); SQUAMOUS EPITHELIAL CELL UR AU 1 /HPF (0-6); UROBILINOGEN, URINE AUTO 0.2 mg/dL (0.0-2.0); WBC, URINE AUTO 65 /HPF (0-3)
== END ==
LOC: M SFHCWAGY 16:42
PROVIDERS: ATTEND Obstetrics & Gynecology
DX: R30.0 Dysuria (principal)

== ENCOUNTER → 2020-04-11 | Outpatient (CLI) | payer BC | LOC: M PLALAB 08:38 | PROVIDERS: ATTEND Obstetrics & Gynecology | DX: Z13.79 Encounter for other screening for genetic and chromosomal anomalies (principal) ==

== ENCOUNTER → 2021-04-04 | Outpatient (REF) | payer BC | LOC: M LABDRWAD 17:26 | PROVIDERS: ATTEND Family Medicine | DX: Z00.00 Encounter for general adult medical examination without abnormal findings (principal) ==

== ENCOUNTER → 2021-05-22 | Outpatient (CLI) | payer OTHER | LOC: M RAD 06:54 | PROVIDERS: ATTEND Nurse Practitioner Family | DX: R22.9 Localized swelling, mass and lump, unspecified (principal) ==

== ENCOUNTER → 2021-06-01 | Outpatient (CLI) | payer OTHER ==
[~2021-06-01] MED LIST changes: +GASTROGRAFIN SOLUTION 30ML (Q9963) As Ordered ONE; +ISOVUE-370 76% 100ML VIAL As Ordered ONE
== END ==
LOC: M RAD 16:20
PROVIDERS: ATTEND Nurse Practitioner Family
DX: R91.8 Other nonspecific abnormal finding of lung field (principal)
CPT/HCPCS: 74178; Q9963; Q9967

== ENCOUNTER → 2021-09-11 | Outpatient (REF) | payer OTHER ==
[~2021-09-11] MED LIST changes: -GASTROGRAFIN SOLUTION 30ML (Q9963) As Ordered ONE; -ISOVUE-370 76% 100ML VIAL As Ordered ONE
== END ==
LOC: M PLALAB 14:08
PROVIDERS: ATTEND Obstetrics & Gynecology
DX: Z12.4 Encounter for screening for malignant neoplasm of cervix (principal)
CPT/HCPCS: 87624; G0123

== ENCOUNTER → 2021-11-10 | Outpatient (CLI) | payer OTHER ==
[~2021-11-10] MED LIST changes: -LABE100T4 PO; +LABE100T6 PO
== END ==
LOC: M RAD 16:07
PROVIDERS: ATTEND Nurse Practitioner Family
DX: G93.5 Compression of brain (principal)

== ENCOUNTER → 2022-04-27 | Outpatient (REF) | payer OTHER ==
[2022-04-27 14:16] LABS: ALBUMIN 4.3 G/DL (3.2-5.2); ALKALINE PHOSPHATASE 90 U/L (46-116); ALT/SGPT 74 U/L (7.0-40); AST/SGOT 37 U/L (<34); BILIRUBIN,TOTAL 0.7 MG/DL (0.3-1.2); BLOOD UREA NITROGEN 15 MG/DL (9-23); CARBON DIOXIDE LEVEL 29 MMOL/L (20-31); CHLORIDE LEVEL 104 MMOL/L (98-107); CHOLESTEROL LEVEL 180 MG/DL (<200); CHOLESTEROL RISK RATIO 2.97 (<5); CREATININE FOR GFR 0.72 MG/DL (0.55-1.30); GLOMERULAR FILTRATION RATE > 60.0 (>60); GLUCOSE, FASTING 82 MG/DL (60-100); HDL CHOLESTEROL 60.6 MG/DL (>40); NON-HDL-C 119 MG/DL; POTASSIUM SERUM 4.9 MMOL/L (3.5-5.1); SODIUM LEVEL 139 MMOL/L (136-145); TOTAL PROTEIN 7.3 G/DL (5.7-8.2); TRIGLYCERIDES LEVEL 102 MG/DL (<150)
== END ==
LOC: M LABDRWAD 12:51
PROVIDERS: ATTEND Nurse Practitioner Family
DX: I10 Essential (primary) hypertension (principal)

== ENCOUNTER → 2022-06-11 | Outpatient (CLI) | payer OTHER | LOC: M PAIN 08:00 | PROVIDERS: ATTEND Nurse Practitioner Family | DX: M79.10 Myalgia, unspecified site (principal); M54.2 Cervicalgia; M54.81 Occipital neuralgia; I10 Essential (primary) hypertension; G43.909 Migraine, unspecified, not intractable, without status migrainosus; Z79.899 Other long term (current) drug therapy ==

== ENCOUNTER → 2022-07-10 | Outpatient (CLI) | payer OTHER | LOC: M PLAIMG 15:46 | PROVIDERS: ATTEND Specialist | DX: M79.12 Myalgia of auxiliary muscles, head and neck (principal) ==

== ENCOUNTER → 2022-09-14 | Outpatient (CLI) | payer OTHER ==
[2022-09-14 13:48] LABS: BASO % 0.4 % (0.0-1.0); EOS # 0.1 10^3/uL (0.0-0.5); EOS % 1.3 % (0.0-3.0); HEMOGLOBIN 14.6 g/dl (12.0-15.5); LYMPH # 1.7 10^3/uL (1.5-5.0); LYMPH % 30.6 % (24.0-44.0); MEAN CORPUSCULAR HEMOGLOBIN 33.1 pg (27.0-33.0); MEAN CORPUSCULAR VOLUME 97.5 fl (80.0-96.0); MONO # 0.3 10^3/uL (0.0-0.8); MONO % 5.2 % (2.0-8.0); NEUTROPHILS # 3.5 10^3/uL (1.5-8.5); NEUTROPHILS % 62.3 % (36.0-66.0); PLATELET COUNT, AUTOMATED 246 10^3/uL (150-450); RED BLOOD COUNT 4.41 10^6/uL (4.00-5.40); WHITE BLOOD COUNT 5.6 10^3/uL (4.0-10.0)
[2022-09-14 14:06] LABS: HEMOGLOBIN A1c 4.9 % (4.0-6.0)
[2022-09-14 14:28] LABS: FERRITIN 43.7 NG/ML (7.3-270.7); FREE T4 1.01 NG/DL (0.89-1.76); THYROID STIMULATING HORMONE 0.701 uIU/ML (0.55-4.78)
[2022-09-14 14:30] LABS: FREE T3 3.4 PG/ML (2.3-4.2)
[2022-09-14 14:31] LABS: ALBUMIN 4.2 G/DL (3.2-5.2); ALKALINE PHOSPHATASE 83 U/L (46-116); ALT/SGPT 40 U/L (7.0-40); AST/SGOT 18 U/L (<34); BILIRUBIN,TOTAL 0.8 MG/DL (0.3-1.2); BLOOD UREA NITROGEN 15 MG/DL (9-23); CALCIUM LEVEL 9.1 MG/DL (8.5-10.1); CARBON DIOXIDE LEVEL 25 MMOL/L (20-31); CHLORIDE LEVEL 104 MMOL/L (98-107); CREATININE FOR GFR 0.73 MG/DL (0.55-1.30); GLOMERULAR FILTRATION RATE > 60.0 (>60); GLUCOSE, FASTING 87 MG/DL (60-100); IRON (FE) 169 UG/DL (50-170); PERCENT SATURATION 49.1 % (13.2-45.0); POTASSIUM SERUM 4.3 MMOL/L (3.5-5.1); SODIUM LEVEL 136 MMOL/L (136-145); TOTAL IRON BINDING CAPACITY 344 UG/DL (250-425); TOTAL PROTEIN 7.1 G/DL (5.7-8.2)
[2022-09-14 14:34] LABS: THYROID PEROXIDASE ANTIBODY 39 U/ML (<60.0)
== END ==
LOC: M LABDRWAD 09:08
PROVIDERS: ATTEND Nurse Practitioner Family
DX: R63.5 Abnormal weight gain (principal)

== ENCOUNTER → 2023-05-30 | Outpatient (CLI) | payer OTHER | LOC: M PLAIMG 15:15 | PROVIDERS: ATTEND Nurse Practitioner Family | DX: M25.561 Pain in right knee (principal) ==

== ENCOUNTER → 2023-09-03 | Outpatient (CLI) | payer OTHER | LOC: M WHC 12:28 | PROVIDERS: ATTEND Physician Assistant Surgical | DX: M25.561 Pain in right knee (principal) ==

== ENCOUNTER → 2023-10-02 | Outpatient (CLI) | payer OTHER | LOC: M PLAIMG 08:14 | PROVIDERS: ATTEND Nurse Practitioner Family | DX: R05.9 Cough, unspecified (principal) ==

== ENCOUNTER → 2023-10-11 | Outpatient (CLI) | payer OTHER ==
[2023-10-11 13:56] LABS: ALBUMIN 4.2 G/DL (3.2-5.2); ALKALINE PHOSPHATASE 70 U/L (46-116); ALT/SGPT 45 U/L (7.0-40); AST/SGOT 19 U/L (<34); BILIRUBIN,TOTAL 1.1 MG/DL (0.3-1.2); BLOOD UREA NITROGEN 13 MG/DL (9-23); CALCIUM LEVEL 9.2 MG/DL (8.5-10.1); CARBON DIOXIDE LEVEL 29 MMOL/L (20-31); CHLORIDE LEVEL 104 MMOL/L (98-107); CHOLESTEROL LEVEL 229 MG/DL (<200); CHOLESTEROL RISK RATIO 4.52 (<5); CREATININE FOR GFR 0.87 MG/DL (0.55-1.30); GLOMERULAR FILTRATION RATE > 60.0 (>60); GLUCOSE, FASTING 83 MG/DL (60-100); HDL CHOLESTEROL 50.6 MG/DL (>40); LDL CHOLESTEROL 149.8 MG/DL (<100); NON-HDL-C 178.4 MG/DL; POTASSIUM SERUM 4.7 MMOL/L (3.5-5.1); SODIUM LEVEL 139 MMOL/L (136-145); TOTAL PROTEIN 7.2 G/DL (5.7-8.2); TRIGLYCERIDES LEVEL 143 MG/DL (<150)
== END ==
LOC: M PLALAB 09:04
PROVIDERS: ATTEND Nurse Practitioner Family
DX: I10 Essential (primary) hypertension (principal)

== ENCOUNTER → 2024-01-26 | Outpatient (REF) | payer OTHER | LOC: M LAB REF 19:38 | PROVIDERS: ATTEND Registered Nurse | DX: N39.0 Urinary tract infection, site not specified (principal) ==

== ENCOUNTER → 2024-09-23 | Outpatient (REF) | payer OTHER ==
[2024-09-25 14:22] LABS: HPV APTIMA Not Detected (Not Detected)
== END ==
LOC: M SFHCWAGY 13:16
PROVIDERS: ATTEND Obstetrics & Gynecology
DX: Z01.419 Encounter for gynecological examination (general) (routine) without abnormal findings (principal)
CPT/HCPCS: 87624; G0123